=== PATIENT | male | born 1945 | race Hispanic/Latino ===

== ENCOUNTER 2024-05-07 08:14 | Inpatient (IN) | payer MEDICARE ==
[~2024-05-07] VITALS: Ht 177.8 cm; Wt 102.1 kg
[2024-05-07] VITALS (15 sets, daily range): BP systolic 119–140; BP diastolic 65–77; PULSE 74–103; RESP 18–27; TEMP 97.8–98.1; O2SAT 95–99
[2024-05-07] MEDS: ALBUTEROL/IPRATROPIUM 3 ML NEB NEB ONE (08:37)
[2024-05-07] MEDS: METHYLPREDNISOLONE SOD SUCC 125 MG/2ML VIAL IV STA (08:43)
[2024-05-07] MEDS: ASPIRIN 81 MG CHEW TAB PO ONE (08:48)
[2024-05-07] MEDS: ACETAMINOPHEN 325 MG TAB PO ONE (08:48)
[2024-05-07 08:49] LABS: BASOPHILS # (AUTO) 0.1 (0.0-0.1); BASOPHILS % 0.6 % (0.0-1.0); EOSINOPHILS # (AUTO) 0.2 (0.0-0.4); EOSINOPHILS % 1.7 % (0.0-6.0); HEMATOCRIT 30.4 % (38.2-49.6); HEMOGLOBIN 8.6 g/dL (14.0-18.0); LYMPHOCYTES # (AUTO) 3.5 (1.0-3.2); LYMPHOCYTES % 27.5 % (18.0-39.1); MEAN CORPUSCULAR HEMOGLOBIN 28.3 pg (28-32); MEAN CORPUSCULAR HGB CONC 28.3 g/dL (31-35); MONOCYTES # (AUTO) 0.9 (0.2-0.8); MONOCYTES % 7.1 % (4.4-11.3); NEUTROPHILS # (AUTO) 7.9 (2.1-6.9); NEUTROPHILS % 62.7 % (38.7-80.0); PLATELET COUNT 434 x10e3/uL (140-360); RED BLOOD COUNT 3.04 x10e6/uL (4.3-5.7); RED CELL DISTRIBUTION WIDTH 14.1 % (11.7-14.4); WHITE BLOOD COUNT 12.59 x10e3/uL (4.8-10.8)
[2024-05-07 09:02] LABS: CORONAVIRUS COVID-19 AG NEGATIVE (NEGATIVE); INFLUENZA A AG NEGATIVE (NEGATIVE); INFLUENZA B AG NEGATIVE (NEGATIVE)
[2024-05-07 09:13] LABS: INR 0.94; PROTHROMBIN TIME 13.2 seconds (11.9-14.5)
[2024-05-07 09:14] LABS: PARTIAL THROMBOPLASTIN TIME 33.3 seconds (23.8-35.5)
[2024-05-07 09:21] LABS: ALBUMIN 3.2 g/dL (3.5-5.0); ALBUMIN/GLOBULIN RATIO 0.8 (0.8-2.0); ANION GAP 16.4 mmol/L (8-16); BILIRUBIN,TOTAL 0.8 mg/dL (0.2-1.2); CALCIUM 8.2 mg/dL (8.4-10.2); CREATININE, SERUM 0.93 mg/dL (0.72-1.25); MAGNESIUM 2.1 MG/DL (1.3-2.1)
[2024-05-07 09:24] LABS: POTASSIUM 3.4 mmol/L (3.5-5.1)
[2024-05-07 09:28] LABS: B-TYPE NATRIURETIC PEPTIDE2 627.7 pg/mL (0-100)
[2024-05-07 09:31] LABS: TROPONIN I 3.376 ng/mL (0-0.300)
[2024-05-07] MEDS ORDERED: ONDANSETRON HCL INJ 2MG/ML 2ML 2 MG/ML VIAL IV PRN (09:45)
[2024-05-07] MEDS: CLOPIDOGREL BISULFATE 75 MG TAB PO ONE (10:05)
[2024-05-07] MEDS: ENOXAPARIN SODIUM INJ 100 MG/ML SYR SC ONE (10:07)
[2024-05-07] MEDS: FUROSEMIDE INJ 10 MG/ML 4 ML VIAL IV ONE (10:07)
[2024-05-07] MEDS: NITROGLYCERIN 2% OINT 1 GM PKT TOP ONE (11:01)
[2024-05-07 11:10] LABS: CLARITY,URINE CLEAR (CLEAR); COLOR,URINE YELLOW (YELLOW)
[2024-05-07 11:11] LABS: BILIRUBIN,URINE NEGATIVE (NEGATIVE); GLUCOSE, URINE NEGATIVE (NEGATIVE); KETONES,URINE NEGATIVE (NEGATIVE); LEUKOCYTE ESTERASE ,URINE NEGATIVE (NEGATIVE); NITRITE,URINE NEGATIVE (NEGATIVE); PH,URINE 5.5 (5 - 7); PROTEIN,URINE DIPSTICK NEGATIVE (NEGATIVE); URINE UROBILINOGEN 0.2 mg/dL (0.2 - 1)
[2024-05-07 11:19] LABS: TROPONIN I 2.958 ng/mL (0-0.300)
[2024-05-07 11:39] LABS: BACTERIA,URINE FEW /HPF; EPITHELIAL CELLS,URINE FEW /LPF; RBC,URINE 0-5 /HPF (0-5)
[2024-05-07] MEDS ORDERED: MULTI-VITAMIN1 EACH PO (12:46)
[2024-05-07] MEDS ORDERED: GARLIC1000 MG (12:46)
[2024-05-07] MEDS: POTASSIUM CHLORIDE 20 MEQ TAB CR PO ONE (18:23)
[2024-05-07] MEDS: FUROSEMIDE INJ 10 MG/ML 4 ML VIAL IV SCH (20:53)
[2024-05-08] VITALS (23 sets, daily range): BP systolic 100–135; BP diastolic 54–72; PULSE 61–86; RESP 15–31; TEMP 98–98.4; O2SAT 90–100
[2024-05-08 06:41] LABS: BASOPHILS % 0.1 % (0.0-1.0); EOSINOPHILS % 0.2 % (0.0-6.0); HEMATOCRIT 27.1 % (38.2-49.6); LYMPHOCYTES # (AUTO) 0.8 (1.0-3.2); MEAN CORPUSCULAR HGB CONC 28.8 g/dL (31-35); MEAN CORPUSCULAR VOLUME 97.1 fL (81-99); MONOCYTES # (AUTO) 0.6 (0.2-0.8); MONOCYTES % 5.7 % (4.4-11.3); NEUTROPHILS # (AUTO) 9.3 (2.1-6.9); NEUTROPHILS % 86.6 % (38.7-80.0); PLATELET COUNT 341 x10e3/uL (140-360); RED BLOOD COUNT 2.79 x10e6/uL (4.3-5.7); RED CELL DISTRIBUTION WIDTH 13.7 % (11.7-14.4); WHITE BLOOD COUNT 10.79 x10e3/uL (4.8-10.8)
[2024-05-08 06:55] LABS: HEMOGLOBIN 7.8 g/dL (14.0-18.0)
[2024-05-08 07:04] LABS: ALBUMIN 2.9 g/dL (3.5-5.0); ALBUMIN/GLOBULIN RATIO 0.8 (0.8-2.0); ANION GAP 14.2 mmol/L (8-16); BILIRUBIN,TOTAL 0.7 mg/dL (0.2-1.2); CALCIUM 8.7 mg/dL (8.4-10.2); CHOL/HDL RATIO 5.6 (3.9-4.7); CREATININE, SERUM 0.95 mg/dL (0.72-1.25); POTASSIUM 4.2 mmol/L (3.5-5.1); TOTAL PROTEIN 6.4 g/dL (6.5-8.1)
[2024-05-08 07:29] LABS: TROPONIN I 2.047 ng/mL (0-0.300)
[2024-05-08] MEDS: CARVEDILOL 3.125 MG TAB PO SCH (08:19)
[2024-05-08] MEDS: LOSARTAN POTASSIUM 25 MG TAB PO SCH (08:19)
[2024-05-08 13:41] LABS: TROPONIN I 1.719 ng/mL (0-0.300)
[2024-05-09] VITALS (19 sets, daily range): BP systolic 101–139; BP diastolic 50–81; PULSE 55–83; RESP 16–24; TEMP 97.6–98; O2SAT 90–100
[2024-05-09 06:50] LABS: BASOPHILS # (AUTO) 0.1 (0.0-0.1); BASOPHILS % 0.4 % (0.0-1.0); EOSINOPHILS # (AUTO) 0.2 (0.0-0.4); EOSINOPHILS % 1.6 % (0.0-6.0); HEMOGLOBIN 8.5 g/dL (14.0-18.0); LYMPHOCYTES # (AUTO) 2.3 (1.0-3.2); LYMPHOCYTES % 20.2 % (18.0-39.1); MEAN CORPUSCULAR HEMOGLOBIN 28.2 pg (28-32); MEAN CORPUSCULAR HGB CONC 30.4 g/dL (31-35); MONOCYTES # (AUTO) 0.7 (0.2-0.8); MONOCYTES % 6.2 % (4.4-11.3); NEUTROPHILS # (AUTO) 8.2 (2.1-6.9); NEUTROPHILS % 71.3 % (38.7-80.0); PLATELET COUNT 370 x10e3/uL (140-360); RED BLOOD COUNT 3.01 x10e6/uL (4.3-5.7); RED CELL DISTRIBUTION WIDTH 14.1 % (11.7-14.4)
[2024-05-09 07:13] LABS: ALBUMIN 3.1 g/dL (3.5-5.0); ALBUMIN/GLOBULIN RATIO 0.9 (0.8-2.0); ANION GAP 13.7 mmol/L (8-16); BILIRUBIN,TOTAL 0.5 mg/dL (0.2-1.2); CALCIUM 8.8 mg/dL (8.4-10.2); CREATININE, SERUM 0.89 mg/dL (0.72-1.25); POTASSIUM 3.7 mmol/L (3.5-5.1); TOTAL PROTEIN 6.4 g/dL (6.5-8.1)
[2024-05-09 07:48] LABS: THYROID STIMULATING HORMONE 3.63 uIU/mL (0.350-4.940)
[2024-05-09] MEDS ORDERED: HEPARIN SOD (PORCINE) 1000 UNIT/ML 30ML ONE (08:38)
[2024-05-09] MEDS ORDERED: VERAPAMIL HCL 2.5 MG/ML 2 ML VIAL ONE (08:38)
[2024-05-09] MEDS ORDERED: HEPARIN SOD/SOD CHLORIDE 2,000 ML ONE (08:39)
[2024-05-09] MEDS ORDERED: NITROGLYCERIN/D5W 200 MCG/ML 250 ML ONE (08:39)
[2024-05-09] MEDS ORDERED: LIDOCAINE HCL 2% LOCAL 20 ML VIAL ONE (08:39)
[2024-05-09] MEDS ORDERED: SODIUM CHLORIDE 0.9% 1000ML 1,000 ML ONE (08:39)
[2024-05-09] MEDS ORDERED: IOPAMIDOL 370 MG/ML 100 ML INFUS..BTL INJ ONE ×2 (08:39→10:14)
[2024-05-09] MEDS ORDERED: MIDAZOLAM HCL 2 MG/2 ML VIAL ONE (09:41)
[2024-05-09] MEDS ORDERED: FENTANYL CITRATE/PF 100MCG/2 ML INJ ONE (09:41)
[2024-05-09] MEDS ORDERED: NOREPINEPHRINE 8 MG/D5W 250 ML 0 ML ONE (10:06)
[2024-05-09 10:59] LABS: FOLATE 10.8 ng/mL (7.0-15.4)
== END 2024-05-09 18:07 | disposition other institution (70) | DRG 280 ==
LOC: ER 08:23 → ERHOLD 09:52 → ICU 11:26
PROVIDERS: ADMIT Internal Medicine; ATTEND Internal Medicine
PROC: 3E0333Z Introduction of Anti-inflammatory into Peripheral Vein, Percutaneous Approach (ICD-10-PCS; 2024-05-07)
PROC: 4A023N7 Measurement of Cardiac Sampling and Pressure, Left Heart, Percutaneous Approach (ICD-10-PCS; principal; 2024-05-09)
PROC: B2111ZZ Fluoroscopy of Multiple Coronary Arteries using Low Osmolar Contrast (ICD-10-PCS; 2024-05-09)
PROC: B2151ZZ Fluoroscopy of Left Heart using Low Osmolar Contrast (ICD-10-PCS; 2024-05-09)
DX: I11.0 Hypertensive heart disease with heart failure (principal); A41.9 Sepsis, unspecified organism; I21.A1 Myocardial infarction type 2; I50.21 Acute systolic (congestive) heart failure; J18.9 Pneumonia, unspecified organism; J18.0 Bronchopneumonia, unspecified organism; J44.0 Chronic obstructive pulmonary disease with (acute) lower respiratory infection; E11.9 Type 2 diabetes mellitus without complications; D64.9 Anemia, unspecified; I25.10 Atherosclerotic heart disease of native coronary artery without angina pectoris; E78.5 Hyperlipidemia, unspecified; R06.03 Acute respiratory distress; E66.01 Morbid (severe) obesity due to excess calories; Z68.32 Body mass index [BMI] 32.0-32.9, adult; Z11.52 Encounter for screening for COVID-19; Z86.73 Personal history of transient ischemic attack (TIA), and cerebral infarction without residual deficits; Z87.891 Personal history of nicotine dependence
CPT/HCPCS: 36415; 71045; 76937; 80053; 80061; 81001; 82550; 82607; 82746; 83036; 83540; 83605; 83735; 83880; 84443; 84466; 84484; 85025; 85379; 85610; 85730; 86850; 86900; 86920; 87040; 87086; 93005; 93306; 93458; 94640; 94799; 99152; 99153; 99252; 99284; C1769; C1887; J0696; J1644; J1650; J1940; J2003; J2250; J2919; J7030; J7050; Q9967